=== PATIENT | male | born 1985 | race Caucasian/White ===

== ENCOUNTER 2022-03-06 12:19 | Emergency (ER) | payer BC, SELFPAY ==
[2022-03-06 12:23] VITALS: BP 133/85; PULSE 69; RESP 12; TEMP 36.9; O2SAT 100
--- NOTE | 2022-03-06 12:23 | ED.ARRPALP ---
HPI - Arrhythmia/Palpitations General Chief Complaint: Arrhythmia/Palpitations Stated Complaint: hear palpitation Time Seen by Provider: 03/06/22 12:23 Source: patient and RN notes reviewed Mode of arrival: ambulatory Limitations: no limitations History of Present Illness HPI narrative: 36-year-old male to the [facility] with complaints of several episodes of the last couple of weeks of palpitations. Per his smart watch states that his heart rate hits 140 without exertion, only lasts about 10 minutes. Denies any chest pain or shortness of breath at that time. States it feels like his heart is racing. Started using a new creatinine about 2 weeks ago. States he does drink alcohol on the weekends. Denies any complaints of chest pain or shortness of breath. No palpitations at this time. Patient reports that he has an appointment with his primary care provider on Monday for the same issue. Patient denies any diaphoresis, nausea, vomiting, chest pain, shortness of breath during these episodes. Patient states they have been occurring on Sundays. States his last episode was last night Related Data Home Medications Medication Instructions Recorded Confirmed No Home Medications 03/06/22 03/06/22 Allergies Allergy/AdvReac Type Severity Reaction Status Date / Time cetirizine Allergy Mild unknown Verified 03/06/22 12:24 azithromycin Allergy Unknown Skin Verified 03/06/22 12:24 Reaction Review of Systems Review of Systems: All systems reviewed & are unremarkable except as noted in HPI and below Constitutional: Constitutional: Reports no additional constitutional complaints, Denies chills and Denies fever(s) Eyes: Eyes: Reports no additional eye complaints ENT: Reports system reviewed and no additional complaints, except as documented Cardiovascular: Cardiovascular: Reports as per HPI and Reports rapid heart rate Respiratory: Respiratory: Reports no additional respiratory complaints Gastrointestinal: Gastrointestinal: Reports no additional gastrointestinal complaints Musculoskeletal: Musculoskeletal: Reports no additional musculoskeletal complaints Integumentary/Breasts: Skin/Breast: Reports system reviewed and no additional complaints, except as docu Neurologic: Reports system reviewed and no additional complaints, except as documented Psychiatric: Psychiatric: Reports no additional psychiatric complaints Allergic/Immunologic: Allergic/Immunologic: Reports no additional allergic/immunologic complaints PMFSH Past Medical History Medical History (Updated 03/06/22 @ 18:54 by Bambi Chowdhury APRN) Gynecomastia Patient denies medical problems Surgical History Surgical History (Updated 03/06/22 @ 18:54 by Bambi Chowdhury APRN) History of tonsillectomy Social History Social History Smoking status: Former smoker Alcohol intake: current Comments At the time of my signature, I reviewed and agree with the nursing past medical, surgical, social, and family history. There is no relevant family history pertinent to the patient complaint. Exam Const: General: healthy appearing, no acute distress and alert Nutritional Appearance: well nourished Orientation/consciousness: patient oriented x3 Limitations: no limitations HENMT: Head: normal to inspection Ears: external ears normal General nose exam: Normal external nose present Face and sinus: normal facial exam Mouth: Yes Normal oral and palatal mucosa present Eyes: General: appearance normal, both eyes and all related structures Pupils: Equal, round and reactive pupils present Neck: Neck: normal visual inspection, no lymphadenopathy and no meningeal signs Chest: Chest palpation & inspection: normal inspection of the chest Resp: Effort & Inspection: normal respiratory effort and no use of accessory muscles Auscultation: clear to auscultation bilaterally, no crackles, no rales, no rhonchi and
--- NOTE | 2022-03-06 12:39 | ECG_ITS ---
Measurements Intervals [place] Rate: 61 P: -12 WI: 197 QRS: -59 QRSD: 97 T: 61 QT: 387 QTc: 391 Interpretive Statements SINUS RHYTHM LEFT ANTERIOR FASCICULAR BLOCK [QRS AXIS <= -45, QR IN I, RS IN II] ABNORMAL ECG Electronically Signed On 03-07-2022 13:50:24 CDT by Sae Ridley M.D. NO PREVIOUS ECG AVAILABLE FOR COMPARISON Electronically Signed On 03-07-2022 14:08:37 CDT by Sae Ridley M.D.
== END 2022-03-06 12:41 | disposition home or self-care (01) ==
PROVIDERS: Emergency Provider Nurse Practitioner; PCP Family Medicine
DX: R00.0 Tachycardia, unspecified (principal); Z87.891 Personal history of nicotine dependence
CPT/HCPCS: 93005; 99213; G0463

== ENCOUNTER 2023-04-27 18:22 | Emergency (ER) | payer BC, SELFPAY ==
--- NOTE | ~2023-04-27 | CT_ITS ---
EXAMINATION: CT brain wo con DATE: 04/27/2023 20:04 INDICATION: Head injury. TECHNIQUE: Computed tomography (CT) of the head was performed without intravenous contrast. The mA wa s adjusted according to patient size. Iterative reconstruction technique was employed. The dose-lengt h product was 681.00 mGy-cm. COMPARISON: Head CT 02/17/2008 FINDINGS: There is no intracranial hemorrhage, acute infarction, or abnormal intracranial mass lesion . The ventricles are normal in size. There is mild mucosal thickening in the paranasal sinuses. The o rbits are normal. The mastoid air cells are normal. IMPRESSION: 1. Normal brain. Reviewed, dictated and finalized at location E. IMPRESSION: 1. Normal brain.
[2023-04-27 18:24] VITALS: BP 131/75; PULSE 70; RESP 18; TEMP 36.6; O2SAT 100
--- NOTE | 2023-04-27 19:52 | ED.HEATRA ---
HPI - Head Injury General Chief complaint: Head Injury Stated complaint: Head hit with hammer Time Seen by Provider: 04/27/23 19:48 History of Present Illness HPI Narrative: Patient is a 37-year-old male, no past medical history, no blood thinner use here today after a head injury. Patient states that he was remodeling a room and he had a hammer up on a ladder. He notes that the hammer fell and hit him in the head. He denies loss of consciousness. He currently is complaining of a headache. He does note that he has a cut on the scalp and it bled quite a bit initially but seems to have stopped. Injury occurred around 6:00 p.m.. He is unsure when his last tetanus shot was. He denies any other injuries. Related Data Home Medications Medication Instructions Recorded Confirmed multivitamin 1 tablet PO DAILY 03/07/22 04/04/22 Allergies Allergy/AdvReac Type Severity Reaction Status Date / Time cetirizine Allergy Mild unknown Verified 04/27/23 18:23 azithromycin Allergy Unknown Skin Verified 04/27/23 18:23 Reaction Review of Systems Review of Systems: All systems reviewed & are unremarkable except as noted in HPI and below PMFSH Past Medical History Medical History Anxiety Gynecomastia Patient denies medical problems Surgical History Surgical History History of tonsillectomy Social History Social History Smoking status: Former smoker Alcohol intake: current Substance use: current Substance use type: marijuana Living arrangements: with family Occupation/Education: occupation Gender identity (if verbalized by the patient): Male Spiritual care concerns: No Exam Narrative: GENERAL: Well-appearing, well-nourished, and in no acute distress. HEAD: Normocephalic, no skull deformities palpated. EYES: PERRLA and EOMI. ENT: Nares clear. Mucous membranes moist. NECK: Supple. No c-spine tenderness. CHEST: unlabored respirations. HEART: Regular rate and rhythm. ABDOMEN: Soft, nontender, nondistended. EXTREMITIES: Normal range of motion. No edema. No clavicular tenderness. SKIN: Warm, dry, no rash. 2 cm linear laceration to the scalp, bleeding controlled. NEURO: No focal deficits. Alert and oriented x3. Course Course Emergency Course: Chart review performed, patient here after getting a hammer to his head. Triage vitals normal. Patient seen evaluated, nontoxic appearing. He is awake, alert and has no neurological deficits. He does have a scalp laceration, no bony defects appreciated. Will do CT head given impact with hammer. Tetanus updated, Tylenol for pain. Will plan on laceration repair after imaging. Patient agreeable to plan. CT negative. Will do lac repair. Wound care and laceration repair performed. Patient tolerated well. The results of pertinent diagnostic studies and exam findings were discussed. The patient?s provisional diagnosis and plan of care were discussed with the patient and present family. The patient and/or present family expressed understanding of the diagnosis and plan. The nurse was instructed to provide written instructions and appropriate follow-up information. The patient understands their need and responsibility to obtain additional follow-up as instructed. The risks of medications administered and prescribed were discussed with the patient and family present. Vital Signs Vital signs: Vital Signs Temperature 98 F 04/27/23 18:24 Pulse Rate 70 04/27/23 18:24 Respiratory Rate 18 04/27/23 18:24 Blood Pressure 131/75 04/27/23 18:24 Pulse Oximetry 100 04/27/23 18:24 Oxygen Delivery Room Air 04/27/23 18:24 Temperature 98 F 04/27/23 18:24 Pulse Rate 70 04/27/23 18:24 Respiratory Rate 18 04/27/23 18:24 Blood Pressure 131/75 04/27/23 18:24 Pulse Oximetry 1
[2023-04-27] MEDS: ACETAMINOPHEN 500 MG TABLET 1000 MG PO (20:26)
[2023-04-27] MEDS: TETANUS,DIPHTHERIA,AC PERTUSSIS ADULT (0.5 ML) BOOSTRIX IM (20:26)
[2023-04-27] MEDS: LIDO 1%/EPINEPHRINE 1:100,000 20 ML VIAL 10 ML INFILTRATE (21:30)
== END 2023-04-27 22:12 | disposition home or self-care (01) ==
PROVIDERS: Emergency Provider Student in an Organized Health Care Education/Training Program; PCP Family Medicine
DX: S01.01XA Laceration without foreign body of scalp, initial encounter (principal); Z23 Encounter for immunization; Z87.891 Personal history of nicotine dependence; W20.8XXA Other cause of strike by thrown, projected or falling object, initial encounter
CPT/HCPCS: 12001; 70450; 90471; 90715; 99284; A9270